=== PATIENT | female | born 1985 | race Asian ===

== ENCOUNTER 2017-07-20 09:52 | Emergency (ER) | payer OTHER ==
[~2017-07-20] VITALS: Ht 161.3 cm; Wt 65.5 kg
[2017-07-20 10:00] VITALS: BP 104/61; PULSE 57; TEMP 36.8; O2SAT 99; Ht 161.3 cm; Wt 65.5 kg
[2017-07-20] MEDS ORDERED: CYCL10TA6 PO (10:15)
--- NOTE | 2017-07-20 17:45 | EMERGENCY ROOM VISIT NOTE ---
History First contact with patient: 10:05 Chief Complaint: NECK PAIN Stated Complaint: MUSCLE CONTRACTURE IN THE NECK History of Present Illness The patient is a 31 year old female who presents to the Emergency Room with complaints of stiffness of the right neck region. The patient reports that she has had this happen in the past. The patient reports that she did recently have extended travel. The patient is a side sleeper. She denies any recent upper respiratory symptoms, fever, sore throat, dental pain, sinus congestion, runny nose or headache. She denies any known injury to the neck. She rates her discomfort a 7 out of 10. Review of Systems 10 system review was performed and was negative except for pertinent positives and negatives as indicated in history of present illness Past Medical/Surgical History Medical Problems: (1) Scoliosis Surgical Problems: (1) History of back surgery Family History FH: diabetes mellitus FH: heart disease FH: hypertension Social History Smoking Status: Never Smoker Alcohol Use: occasionally Marital Status: Occupation Status: employed Current/Historical Medications Scheduled PRN Cyclobenzaprine Hcl (Flexeril), 10 MG PO TID PRN for spasm Physical Exam Vital Signs Date Time Temp Pulse Resp B/P (MAP) Pulse Ox O2 Delivery O2 Flow Rate FiO2 07/20/17 10:00 36.8 57 16 104/61 99 Room Air Physical Exam CONSTITUTIONAL: Healthy and well nourished. Alert and oriented X 3 with positive affect. Patient does not appear in any acute distress. HEENT: Normocephalic, atraumatic. Pupils equal, round and reactive. Ears and nares are clear. No conjunctival injection or scleral icterus. NECK: Examination shows mild tenderness to palpation of the right lower cervical and trapezius musculature. No tenderness to palpation through the central cervical spine. No palpable muscle spasm. No nuchal rigidity. RESPIRATORY: Clear to auscultation bilaterally with no wheezing, crackles, rhonchi or stridor. CARDIOVASCULAR: Regular rate and rhythm with no murmurs, rubs or gallops. GASTROINTESTINAL: Bowel sounds present in all quadrants. MUSCULOSKELETAL: Patient does not have any significantly worsening pain with range of motion of the right shoulder. As indicated in the previous sections, the patient does have tenderness to palpation of the right trapezius muscle. INTEGUMENTARY: No rash or other significant dermatologic conditions noted. NEUROLOGIC: Cranial nerves II-XII grossly intact. No focal neurologic deficits noted. Right deltoid sensation is intact. Medical Decision & Procedures ED Course Patient history and physical exam were performed. Nurse's notes were reviewed. Vital signs were reviewed and were normal. History and clinical exam are consistent with muscular strain. The patient has no obvious spasm on exam. A soft collar was dispensed. The patient was encouraged to apply heat to the neck. Ibuprofen and Tylenol in alternating fashion as needed for additional pain relief. The patient was provided a prescription for Flexeril if needed for worse pain. She was warned about sedation while taking this medication. The patient was encouraged to follow-up with her PCP if symptoms are not improving within the next several days. The patient was happy with plan of care , voice understanding of all discharge instructions, refused any analgesics while in the emergency department, and rated her discomfort a 5 out of 10 at the conclusion of my exam. Medical Decision Medication Reconcilliation Current Medication List: was personally reviewed by me Blood Pressure Screening Patient's blood pressure: Normal blood pressure Impression Primary Impression: Cervical strain, acute Departure Information Dispostion Home / Self-Care Prescriptions Cyclobenzaprine Hcl (FLEXERIL) 10 Mg Tab 10 MG PO TID Y for spasm, #15 TAB Prov: Jb Billings PA 07/20/17 Referrals No Doctor, Assigned (PCP) Forms HOME CARE DOCUMENTATION FORM, IMPORTANT VISIT INFORMATION Patient Instructions My [facility] Additional Instructions Intermittently apply moist heat to neck. Ibuprofen 600 mg and/or Tylenol 1000 mg every 8 hours. You may also alternate these medications for more effective pain relief: Ibuprofen --4 HRS--> Tylenol --4 HRS--> ibuprofen --4 HRS--> Tylenol .... Flexeril if needed for muscle spasms. Do not drink alcohol or drive while taking Flexeril. Follow-up with your family doctor/[facility] if symptoms persist. Problem Qualifiers Primary Impression: Cervical strain, acute Encounter type: initial encounter Qualified Codes: S16.1XXA - Strain of muscle, fascia and tendon at neck level, initial encounter
== END 2017-07-20 10:30 | disposition home or self-care (01) ==
LOC: C.EDB 09:57 → C.EDC 10:30
DX: S16.1XXA Strain of muscle, fascia and tendon at neck level, initial encounter (principal); X50.9XXA Other and unspecified overexertion or strenuous movements or postures, initial encounter; Z98.890 Other specified postprocedural states; Z83.3 Family history of diabetes mellitus; Z82.49 Family history of ischemic heart disease and other diseases of the circulatory system